=== PATIENT | female | born 1970 | race African-American/Black ===

== ENCOUNTER 2018-05-19 19:02 | Emergency (ER) | payer OTHER ==
[~2018-05-19] VITALS: Ht 167.6 cm; Wt 79.4 kg
[2018-05-19] MEDS ORDERED: INSULIN (20:57)
[2018-05-19 21:40] LABS: BASOPHILS # (AUTO) 0.1 K/uL (0.0-8.0); BASOPHILS % (AUTO) 1.2 % (0.0-2.0); EOSINOPHILS # (AUTO) 0.1 K/uL (0.0-0.7); HEMATOCRIT 40.1 % (31.2-41.9); HEMOGLOBIN 14.1 g/dL (10.9-14.3); LYMPHOCYTES # (AUTO) 1.7 K/uL (20.0-40.0); LYMPHOCYTES % (AUTO) 31.7 % (20.5-51.5); MEAN CORPUSCULAR HGB CONC 35 g/dL (32.3-35.6); MEAN CORPUSCULAR VOLUME 96.6 fL (75.5-95.3); MONOCYTES # (AUTO) 0.5 K/uL (2.0-10.0); MONOCYTES % (AUTO) 9.1 % (0.0-11.0); PLATELET COUNT (AUTO) 209 K/uL (179-408); RED BLOOD CELL COUNT(AUTO) 4.15 MIL/uL (3.63-4.92); WHITE BLOOD COUNT (AUTO) 5.3 K/uL (3.8-11.8)
[2018-05-19 21:55] LABS: BILIRUBIN,DIRECT 0.1 mg/dL (0.0-0.2); BILIRUBIN,TOTAL 0.4 mg/dL (0.2-1.0); CREATININE 0.8 mg/dL (0.6-1.3); POTASSIUM 3.4 mmol/L (3.5-5.1); TOTAL PROTEIN, SERUM 7.9 g/dL (6.4-8.2)
[2018-05-19] MEDS ORDERED: IV NORMAL SALINE 1000 ML BAG IV ONE ×2 (22:00→22:45)
[2018-05-19] MEDS ORDERED: ONDANSETRON IV *ER 4 MG/2 ML VIAL IV ONE (22:00)
[2018-05-19] MEDS ORDERED: KETOROLAC TROMETHAMINE 30 MG INJ IVP ONE (22:00)
--- NOTE | 2018-05-19 22:02 | NUR ---
Pt came in from triage c/o epigastric abd pain since yesterday with nausea, vomiting, diarrhea. Pt stated that she has hx of pancreatitis and DM. Pt stated that her FSBS has been on the 300s. No sob noted. NO s/sx of distress noted. Resp even and unlabored. Will cont to monitor. US at bedside. Call light within reach.
[2018-05-19] MEDS ORDERED: ONDANSETRON 4 MG/2 ML VIAL ONE (22:17)
[2018-05-19 22:20] LABS: *BILIRUBIN,URIN NEGATIVE (NEGATIVE); *BLOOD, URINE Trace-lysed (NEGATIVE); *CLARITY,URINE CLEAR (CLEAR); *COLOR,URINE YELLOW (YELLOW); *KETONES,URINE 3+ (NEGATIVE); *PROTEIN,URINE NEGATIVE (NEGATIVE); *UROBILINOGEN,URINE 0.2 E.U./dl (NORMAL); LEUKOCYTE ESTERASE ,URINE NEGATIVE (NEGATIVE); NITRITE, URINE NEGATIVE (NEGATIVE); UGLUCOSE 2+ (NEGATIVE)
[2018-05-19 22:21] LABS: *URINE HCG, QUAL NEGATIVE (NEGATIVE)
[2018-05-19] MEDS ORDERED: KETOROLAC TROMETHAMINE 30 MG INJ ONE (22:23)
[2018-05-19 22:25] LABS: RBC,URINE 0-3 /HPF (0-3); SQUAMOUS EPITHELIAL CELL,UR FEW /HPF (NONE SEEN); WBC,URINE 0-3 /HPF (0-3)
[2018-05-19] MEDS ORDERED: POTASSIUM CHLORIDE 10 MEQ TAB.PRT.SR PO ONE (22:45)
[2018-05-19] MEDS ORDERED: POTASSIUM CHLORIDE 20 MEQ TAB.PRT.SR ONE (22:58)
[2018-05-19] MEDS ORDERED: LIDOCAINE VISCUS 2% 15 ML UDC ONE (23:14)
[2018-05-19] MEDS ORDERED: MAG HYDROX/AL HYDROX/SIMETH 30 ML LIQUID UDC ONE (23:14)
[2018-05-19] MEDS ORDERED: MAG HYDROX/AL HYDROX/SIMETH 30 ML LIQUID UDC PO ONE (23:15)
[2018-05-19] MEDS ORDERED: LIDOCAINE VISCUS 2% 15 ML UDC MM ONE (23:15)
--- NOTE | 2018-05-20 00:06 | NUR ---
Patient discharged to home in stable conditon. Written and verbal after care instructions given. Patient verbalizes understanding of instructions. IV to RFA 18g discontinued d/t tx completed. Inner cannula intact. Light pressure with gauze and tape applied to site. No complications. Pt luis well.
[2018-05-20 00:08] VITALS: BP 141/90
== END 2018-05-20 00:09 | disposition home or self-care (01) ==
LOC: ER 19:04
DX: E11.65 Type 2 diabetes mellitus with hyperglycemia (principal); R10.13 Epigastric pain; E87.6 Hypokalemia
CPT/HCPCS: 36415; 76705; 80048; 80076; 81001; 83690; 84703; 85025; 96361; 96374; 96375; 99285; A4663; J1885; J2405; J7030 ×2